=== PATIENT | male | born 1980 | race Caucasian/White ===

== ENCOUNTER 2016-08-07 07:34 | Emergency (ER) | payer SELFPAY ==
[~2016-08-07] VITALS: Ht 175.3 cm; Wt 100.0 kg
[2016-08-07 07:35] VITALS: BP 138/88; PULSE 72; RESP 14; TEMP 98.3; O2SAT 99
--- NOTE | 2016-08-07 08:14 | PD ---
HPI Chief Complaint: Musculoskeletal Complaint Time Seen by Provider: 07:57 Travel History International Travel<30 days: No Contact w/Intl Traveler<30days: No Traveled to known affect area: No History of Present Illness HPI 35-year-old male presents to emergency Department with complaints of left volar wrist pain which he's had approximately 2 weeks. Patient states previous history of fracture to the left forearm in the . 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 He cannot remember any specific injury however. 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 He states that aggravates symptoms as well. His been using an Malcom bandage without improvement. He states he's taken ibuprofen occasionally with mild improvement at that time. He denies numbness, tingling, or weakness. Pain is 6 out of 10 at worst. Patient has no known drug allergies. PFSH Past Medical History Anxiety: Yes Cancer: No Cardiovascular Problems: No Diminished Hearing: No Endocrine: No Genitourinary: No Immune Disorder: No Musculoskeletal: No Neurologic: No Psychiatric: No Reproductive: No Respiratory: No Seizures: Yes Influenza Vaccination: No Past Surgical History Abdominal Surgery: Yes (HERNIA AND ABSCESS REPAIR) Appendectomy: Yes Social History Alcohol Use: Yes (RARELY) Tobacco Use: No Substance Use: No Allergies-Medications (Allergen,Severity, Reaction): Coded Allergies: No Known Allergies (Verified , 08/07/16) Reported Meds & Prescriptions Reported Meds & Active Scripts Active No Active Prescriptions or Reported Medications Review of Systems Except as stated in HPI: all other systems reviewed are Neg General / Constitutional: No: Fever Eyes: No: Visual changes HENT: No: Headaches Cardiovascular: No: Chest Pain or Discomfort Respiratory: No: Shortness of Breath Gastrointestinal: No: Abdominal Pain Genitourinary: No: Dysuria Musculoskeletal: Positive: Myalgias, Arthralgias, Limited ROM, Pain Skin: No Rash Neurologic: No: Weakness Psychiatric: No: Depression Endocrine: No: Polydipsia Hematologic/Lymphatic: No: Easy Bruising Physical Exam Narrative GENERAL: Patient appears in no acute distress. SKIN: Warm and dry. Color. Normal turgor. HEAD: Atraumatic. Normocephalic. EYES: Pupils equal and round. No scleral icterus. No injection or drainage. ENT: No nasal bleeding or discharge. Mucous membranes pink and moist. NECK: Trachea midline. No JVD. CARDIOVASCULAR: Regular rate and rhythm. RESPIRATORY: No accessory muscle use. Clear to auscultation. Breath sounds equal bilaterally. GASTROINTESTINAL: Abdomen soft, non-tender, nondistended. Hepatic and splenic margins not palpable. MUSCULOSKELETAL: Extremities without clubbing, cyanosis, or edema. No obvious deformities. Patient has tenderness with palpation along the left flexor tendons of the wrist. He has no signs of carpal tunnel however. Pain is elicited with flexion and extension of the wrist as well as pronation and supination of the wrist. Patient has no pain in the left elbow or arm itself. 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 NEUROLOGICAL: Awake and alert. No obvious cranial nerve deficits. Motor grossly within normal limits. Five out of 5 muscle strength in the arms and legs. Normal speech. PSYCHIATRIC: Appropriate mood and affect; insight and judgment normal. Data Data Last Documented VS Vital Signs Date Time Temp Pulse Resp B/P Pulse Ox O2 Delivery O2 Flow Rate FiO2 08/07/16 07:35 98.3 72 14 138/88 99 MDM Medical Decision Making Medical Screen Exam Complete: Yes Emergency Medical Condition: No Differential Diagnosis Left wrist strain. Left wrist tendinitis. Repetitive motion injury. Narrative Course A medical screening exam was performed: At the time of evaluation the presenting medical condition was determined not to be of an emergent nature. The patient was given the option of receiving additional care, but declined. Patient was given options for additional community resources from which to obtain care. The Patient Has Been advised to seek medical attention for their presenting complaint. The patient has been advised to return to the ER at any time if an emergent condition develops. Scripts No Active Prescriptions or Reported Meds Condition: Stable Rohan Ram Aug 07, 2016 08:14
== END 2016-08-07 09:30 | disposition left against medical advice (07) ==
LOC: NEPD 07:34
DX: M25.532 Pain in left wrist (principal)
CPT/HCPCS: 99281